=== PATIENT | female | born 1975 | race Caucasian/White ===

== ENCOUNTER 2020-02-23 15:21 | Emergency (ER) | payer MEDICAID ==
[~2020-02-23] VITALS: Ht 170.2 cm; Wt 59.0 kg
[2020-02-23 15:33] VITALS: BP 118/86
[2020-02-24] MEDS ORDERED: LORA2TAB96 PO (00:46)
== END 2020-02-23 18:11 | disposition left against medical advice (07) ==
LOC: ER 15:22
DX: F41.9 Anxiety disorder, unspecified (principal); Z53.21 Procedure and treatment not carried out due to patient leaving prior to being seen by health care provider

== ENCOUNTER 2020-02-23 23:47 | Emergency (ER) | payer MEDICAID ==
[~2020-02-23] VITALS: Ht 170.2 cm; Wt 72.0 kg
[2020-02-23 23:51] VITALS: BP 104/59
[2020-02-24] MEDS ORDERED: diphenhydrAMINE 25mg capsule PO ONE (00:10)
[2020-02-24] MEDS ORDERED: ibuprofen tablet 400 MG TABLET PO ONE (00:10)
[2020-02-24 00:16] LABS: URINE HCG NEGATIVE (NEG)
[2020-02-24 00:24] LABS: CLARITY,URINE CLEAR (Clear); COLOR,URINE YELLOW (Yellow); GLUCOSE, URINE NEGATIVE (Neg); KETONES,URINE NEGATIVE (Neg); LEUKOCYTE ESTERASE ,URINE NEGATIVE (Neg); NITRITES, URINE NEGATIVE (Neg); OCCULT BLOOD,URINE NEGATIVE (Neg); PH,URINE 5.5 (4.8-8.0); PROTEIN,URINE NEGATIVE (Neg); UROBILINOGEN,URINE 0.2 E.U/dL (0.2-1.0)
[2020-02-24 00:25] LABS: UA COLLECTION TYPE CLN CATCH MIDSTREAM
[2020-02-24 00:31] LABS: URINE AMPHETAMINE SCREEN NEGATIVE (Neg); URINE BARBITUATE SCREEN NEGATIVE (Neg); URINE BENZODIAZEPINES SCREEN NEGATIVE (Neg); URINE CANNABINOID SCREEN NEGATIVE (Neg); URINE COCAINE SCREEN NEGATIVE (Neg); URINE METHADONE SCREEN NEGATIVE (Neg); URINE OPIATE SCREEN NEGATIVE (Neg); URINE PHENCYCLIDINE SCREEN NEGATIVE (Neg)
[2020-02-24] MEDS ORDERED: LORazepam 1 MG tablet PO ONE ×2 (00:45)
[2020-02-24] MEDS ORDERED: LORA2TAB96 PO (00:46)
== END 2020-02-24 01:04 | disposition home or self-care (01) ==
LOC: ER 23:48
DX: F41.9 Anxiety disorder, unspecified (principal); Z72.89 Other problems related to lifestyle; Z88.8 Allergy status to other drugs, medicaments and biological substances
CPT/HCPCS: 80305; 81003; 81025; 99284; Q0163